=== PATIENT | male | born 1960 | race Caucasian/White ===

== ENCOUNTER → 2019-07-03 | Outpatient (CLI) | payer OTHER ==
[~2019-07-03] MED LIST: ATEN25TA OR; PROZ20CA OR
--- NOTE | 2019-07-03 08:56 | REP ---
MAXILLOFACIAL CT STUDY WITHOUT CONTRAST: HISTORY: Chronic maxillary sinusitis. Comparison is made with images from soft-tissue neck MRI study January 22, 2010. CT FINDINGS: Digital preliminary machine assistant radiograph is unremarkable. The frontal sinuses are clear. The maxillary sinuses show minimal 1 mm mucosal thickening in the floor the left maxillary sinus. Ostiomeatal complexes are bilaterally patent. The sphenoid sinuses are clear. There are mild ethmoid sinus mucosal changes bilaterally. Mastoid aeration is symmetric. Middle ear cavities are aerated bilaterally. No intraorbital abnormality is appreciated. No intracranial abnormality is appreciated. The bony nasal septum is essentially midline. Nasal turbinate soft tissues are unremarkable. IMPRESSION: Mild mucosal changes in the ethmoid and left maxillary sinuses. Electronically Signed by Tony Valerio MD 07/03/2019 09:13 A
== END ==
LOC: M RAD 08:27
PROVIDERS: ATTEND Otolaryngology
DX: J32.0 Chronic maxillary sinusitis (principal)

== ENCOUNTER → 2020-05-21 | Outpatient (CLI) | payer OTHER ==
[2020-05-21 16:34] LABS: IMMUNOGLOBULIN M 54.9 MG/DL (40-230)
[2020-05-25 05:08] LABS: ALPHA 1 ANTITRYPSIN 128 mg/dL (101-187); D001-IgE D pteronyssinus <0.10 kU/L (Class 0); E001-IgE Cat Epith/Dander < 0.10 kU/L (Class 0); E003-IGE HORSE EPITHELIA/DAND <0.10 kU/L (Class 0); E004-IGE COW DANDER <0.10 kU/L (Class 0); E005-IgE Dog Dander < 0.10 kU/L (Class 0); F001-IGE EGG WHITE <0.10 kU/L (Class 0); F013-IgE Peanut <0.10 kU/L (Class 0); F014-IGE SOYBEAN <0.10 kU/L (Class 0); F017-IgE Filbert/Hazlnut <0.10 kU/L (Class 0); F018-IgE Brazil Nut <0.10 kU/L (Class 0); F020-IgE Almond <0.10 kU/L (Class 0); F024-IgE Shrimp <0.10 kU/L (Class 0); F075-IGE EGG YOLK <0.10 kU/L (Class 0); F202-IgE Cashew Nut <0.10 kU/L (Class 0); F235-IGE LENTIL <0.10 kU/L (Class 0); F256-IgE Walnut Meat <0.10 kU/L (Class 0); F338-IgE Oyster <0.10 kU/L (Class 0); F338-IgE Scallop <0.10 kU/L (Class 0); G002-IgE Bermuda Grass < 0.10 kU/L (Class 0); G008-IgE Kentucky Bluegrass < 0.10 kU/L (Class 0); M001-IgE Penicillium chrysogen < 0.10 kU/L (Class 0); M002 IgE Cladosporium herbaru < 0.10 kU/L (Class 0); M003 IgE Aspergillus fumigatu < 0.10 kU/L (Class 0); M006-IgE Alternaria alternata < 0.10 kU/L (Class 0); T001-IgE Maple/Box Elder < 0.10 kU/L (Class 0); T003-IgE Common Silver Birch < 0.10 kU/L (Class 0); T006-IgE Cedar, Mountain < 0.10 kU/L (Class 0); T007-IgE Oak, White < 0.10 kU/L (Class 0); T008-IgE Elm, American < 0.10 kU/L (Class 0); T015-IgE Ash, White < 0.10 kU/L (Class 0); T041-IgE Hickory, White < 0.10 kU/L (Class 0); T070-IgE White Mulberry < 0.10 kU/L (Class 0); W001-IgE Ragweed, Short < 0.10 kU/L (Class 0); W009-IgE Plantain, English < 0.10 kU/L (Class 0); W014-IgE Pigweed, Rough < 0.10 kU/L (Class 0); W018-IgE Sheep Sorrel < 0.10 kU/L (Class 0)
== END ==
LOC: M LAB 14:37
PROVIDERS: ATTEND Nurse Practitioner Family
DX: H10.45 Other chronic allergic conjunctivitis (principal); R05 Cough; Z72.0 Tobacco use; J30.89 Other allergic rhinitis

== ENCOUNTER → 2024-03-02 | Outpatient (CLI) | payer OTHER | LOC: M RAD 08:16 | PROVIDERS: ATTEND Registered Nurse | DX: R55 Syncope and collapse (principal) ==